=== PATIENT | female | born 1965 | race Caucasian/White ===

== ENCOUNTER 2022-04-11 13:56 | Outpatient (CLI) | payer BC, SELFPAY ==
[2022-04-11 09:41] LABS: Cholesterol* 186 mg/dL (90-199)
[2022-04-11 09:42] LABS: Glucose* 151 mg/dL (60-115); HDL Cholesterol* 51 mg/dL (>=50); LDL Cholesterol Calculated 96 mg/dL (<100); Triglycerides* 193 mg/dL (40-149)
== END 2022-04-11 13:57 | disposition home or self-care (01) ==
PROVIDERS: PCP Family Medicine; Visit Provider Family Medicine
DX: Z01.419 Encounter for gynecological examination (general) (routine) without abnormal findings (principal); E78.5 Hyperlipidemia, unspecified; R73.01 Impaired fasting glucose; E66.9 Obesity, unspecified; L30.9 Dermatitis, unspecified
CPT/HCPCS: 80061; 82947

== ENCOUNTER 2023-09-01 08:28 | Outpatient (CLI) | payer OTHER, SELFPAY ==
--- OUTSIDE RECORDS SUMMARY | 2023-09-04 10:12 | XMS_ITS | Referral Summary ---
Author Name Unknown Organization [facility] Address [address] [place] [address] Care Team Providers Care Medical Authorization Specialist Name Role Phone Clinic, [facility] Primary Care Provider Allergies Active Allergy Reactions Criticality Noted Date Comments Bee Pollen Swelling 09/04/2019 Codeine Hives,Shortness Of Breath High 05/05/2009 Hydrochlorothiazide W-Spironolactone 05/05/2009 Heartburn Iodine Swelling 09/09/2019 Local swelling wherever iodine scrub was used Mold Other (See Comments) 09/04/2019 Nasal congestion Oxycodone-Acetaminophen Hives 05/05/2009 Pyridoxine Swelling 08/21/2018 Medications Medication Sig Dispensed Refills Start Date End Date Status venlafaxine (EFFEXOR) 37.5 MG tablet 0 08/27/2019 Active tamsulosin (FLOMAX) 0.4 MG capsule Take 0.4 mg by mouth 0 09/26/2019 Active Social History Tobacco Use Types Packs/Day Years Used Date Smoking Tobacco: Never Assessed Adolescent Education Answer Date Record ed Getting School Help Needed Not on file 05/20 Sex and Gender Information Value Date Recorded Sex Assigned at Not on file Gender Identity Not on file Sexual Orientation Not on file Last Filed Vital Signs Vital Sign Reading Time Taken Comments Blood Pressure 181/100 04/10/2021 10:21 AM CDT Pulse 77 04/10/2021 10:21 AM CDT Temperature 36.7 ??C (98 ??F) 04/10/2021 10:21 AM CDT Respiratory Rate 22 04/10/2021 10:21 AM CDT Oxygen Saturation 95% 04/10/2021 3:00 PM CDT Inhaled Oxygen Concentration - - Weight 103.9 kg (229 lb) 04/10/2021 10:21 AM CDT Height - - Body Mass Index - - Plan of Treatment Not on file Care Teams Medical Authorization Specialist Relationship Specialty Start Date End Date Clinic, [facility] [address] [place] [address] PCP - General 09/18/19
--- OUTSIDE RECORDS SUMMARY | 2023-09-04 10:12 | XMS_ITS | Clinical Summary ---
Author Name Unknown Organization [facility] Address [place], [place] [address] Care Team Providers Care Hospice Home Care Coordinator Name Role Phone Jose Souza MD Primary Care Provider [phone] Allergies Active Allergy Reactions Criticality Noted Date Comments Spironolacton-Hydroch lorothiaz 05/05/2009 Heartburn Bee Pollen Edema 09/04/2019 Pyridoxine Edema 08/21/2018 Codeine Hives,Shortness Of Breath 05/05/2009 Iodine Edema 09/09/2019 Local swelling wherever iodine scrub was used Mold Other - Describe In Comment Field 09/04/2019 Nasal congestion Oxycodone-Acetaminoph en Hives 05/05/2009 Sulfa (Sulfonamide Antibiotics) Nausea And Vomiting 05/05/2009 Medications Medication Sig Dispensed Refills Start Date End Date Status triamcinolone (ARISTOCORT; KENALOG) 0.1 % cream Apply topically to affected area(s) 2 times daily. 40 g 4 02/18/2011 Active ondansetron (ZOFRAN) 4 mg tablet Take 1 tablet by mouth every 8 hours if needed for Nausea/Vomiting. 20 tablet 0 04/01/2011 Active venlafaxine (EFFEXOR) 37.5 mg tablet Take 1 tablet by mouth every morning. 0 11/18/2013 Active betamethasone dipropionate 0.05% (DIPROSONE 0.05% OINTMENT) 0.05 % ointment Apply topically to affected area(s) 2 times daily. 1 Tube 0 11/18/2013 Active ZOLMitriptan (ZOMIG) 5 mg tablet Take 5 mg by mouth. As needed 0 11/09/2013 Active calcium carbonate (OS-MARCELO 500) 500 mg calcium (1,250 mg) tablet Take 500 mg by mouth once daily with a meal. 0 Active cholecalciferol (VITAMIN D3) 2,000 unit capsule Take 2,000 Units by mouth once daily. 0 Active coenzyme q10 100 mg cap Take 100 mg by mouth once daily. 0 Active HYDROcodone-acetamin ophen, 5-325 mg, (NORCO) per tablet TAKE 1 TABLET BY MOUTH EVERY 4 TO 6 HOURS NEEDED FOR SEVERE PAIN. 0 09/26/2019 Active ondansetron (ZOFRAN ODT) 4 mg disintegrating tablet 0 09/19/2019 Active tamsulosin (FLOMAX) 0.4 mg capsule Take 0.4 mg by mouth once daily after a meal. 0 09/26/2019 Active fluconazole (DIFLUCAN) 200 mg tabletIndications: farnsworth Take 1 tablet by mouth once daily. Take day prior to procedure and day after 2 tablet 0 10/16/2019 Active glucosamine/chondroi tn/C/hilaria (GLUCOSAM-CHONDROITI N-VIT C-[place] ORAL) Take 1 Tab by mouth once daily. 0 Active omega 8-seb-jvb-fish oil 900 mg-360 mg- 455 mg-1,000 mg cap Take 1 capsule by mouth once daily. 0 Active Multivitamins with Minerals capsule Take 1 tablet by mouth once daily. 0 Active diclofenac topical (VOLTAREN) 1 % gel Apply 2-4 g topically to affected area(s) 4 times daily. 0 Active HYDROcodone-acetamin ophen, 5-325 mg, (NORCO) per tabletIndications:Mauricio figueroayasmeen vy Take 1-2 tablets by mouth every 4 hours if needed for Pain Max acetaminophen dose: 4000 mg in 24 hrs. 10 tablet 0 12/16/2019 Active Active Problems Problem Noted Date Diagnosed Date Obesity 05/05/2009 Migraine 05/05/2009 GERD 05/05/2009 Overview: Infrequent since stopping caffeine. Sleep apnea 05/05/2009 Overview: CPAP intolerant. Resolved clinically with septoplasty and nasal cyst excision. Nasal septal deviation 05/05/2009 Chronic rhinitis 05/05/2009 Overview: Improved since septoplasty. Urticaria 05/05/2009 Overview: Chronic Kidney stone Resolved Problems Problem Noted Date Diagnosed Date Resolved Date Toxemia 05/05/2009 07/15/2010 Cervical cancer screening 05/05/2009 Overview: -results- NIL Screening mammogram 05/05/2009 07/15/20 10 Overview: 04/2004-normal results Immunizations Name Administration Dates Next Due Influenza, IIV3 (Age >=3 years) 05/14/2010,05/06 Td (Age >=7 Years) 02/11/1994 Tdap 07/15/2010 Family History Medical History Relation Name Comments Cancer Maternal Aunt Ovarian Cancer-breast Mother DIAGNOSED AT 5 6 YEARS OF AGE Cancer-breast Other 1 MATERNAL GREAT AUNT X 2 Cancer-breast Other 2 MATERNAL SECON D COUSIN X 2 Cancer Other 3 OVARIAN - MATER NAL GREAT AUNT X 2 Cancer Other 4 OVARIAN - MATER NAL GREAT GREAT AUNT Cancer-colon Other 5 MATERNAL GREAT AUNT X 2 Cancer Sister 2 Cervical Relation Name Status Comments Brother Alive Daughter 1 Alive Daughter 2 Alive Father Alive Maternal Aunt Mother Alive Other 1 Other 2 Other 3 Other 4 Other 5 Sister 1 Alive Sister 2 Social History Tobacco Use Types Packs/Day Years Used Date Smoking Tobacco: Never Smokeless Tobacco: Never Tobacco Cessation:Counseling Given: Yes Alcohol Use Standard Drinks/Week Comments Not Currently 0 (1 standard drink = 0.6 oz pur e alcohol) few drinks per year Sex and Gender Information Value Date Recorded Sex Assigned at Not on file Gender Identity Not on file Sexual Orientation Not on file Obstetrics History Para Term AB IAB SAB Ectopic Multiple Livin g Live Births 3 2 2 0 1 0 1 0 0 2 2 Date Outcome GA Total Labor Labor/2nd/3rd Weight Sex Delivery Anes PTL Kim A1 A5 Name Cl in SAB 06/29 Term 40w 0d F Spina l N María ng Hailey payne Comments:toxemia 08/02 Term 40w 0d F Spina l N María ng Arvind payne Last Filed Vital Signs Vital Sign Reading Time Taken Comments Blood Pressure 119/62 12/16/2019 2:24 PM CDT Pulse 61 12/16/2019 2:24 PM CDT Temperature 36.1 ??C (97 ??F) 12/16/2019 2:24 PM CDT Respiratory Rate 16 12/16/2019 2:24 PM CDT Oxygen Saturation 97% 12/16/2019 2:24 PM CDT Inhaled Oxygen Concentration - - Weight 117.5 kg (259 lb) 12/16/2019 11:07 AM CDT Height 167.6 cm (5' 6) 12/16/2019 11:07 AM CDT Body Mass Index 41.8 12/16/2019 11:07 AM CDT Plan of Treatment Health Maintenance Due Date Last Done Comments COVID-19 vaccine series (#1) 1966 Depression screening for age 12+ 1978 HIV for age 15-65 1981 BMI (ht and wt on same day) for age 18+ 02/10/1984 Hepatitis C screening for ag e 18-79 02/10/1984 Colonoscopy through age 75 2011 Mammogram for age 45-75 07/15/2011 07/15/2010 Pap test for age 21-65 07/15/2013 07/15/2010 Lipids for age 45-75 07/15/2015 07/15/2010 Zoster (shingles) series for age 50+ (1 of 2) 02/10/2016 Tetanus booster 07/15/2020 07/15/2010, 02/11/1994 Influenza for age 50-64 04/14/2023 05/14/20 10, 05/06/2009 Tdap Completed 07/15/2010 Pneumococcal series for age 6-64 Aged Out No longer eligible b ased on patient's age to complete this topic Medical Devices Implanted Type Area Rib Trim Separator Device Identifier Shelf Expiration Date Model / Serial / Lot Stent Uret [id number] Contour - [id number] Implanted:Qty: 1 on 09/09/2019 by Víctor Ponce MD at [facility] Left: [facility] 05/23/2022 [id number]# / / [id number] Advance Directives Latest Code Status on File Code Status Date Activated Date Inactivated Comments Full Code 12/16/2019 10:40 AM 12/16/2019 4:58 PM Code Status History Code Status Date Activated Date Inactivated Comments Full Code 09/09/2019 8:17 AM 09/09/2019 2:58 PM Care Teams Hospice Home Care Coordinator Relationship Specialty Start Date End Date Jose Souza MD [address] [place] [address] PCP - General Family Practice 07/18/18
--- OUTSIDE RECORDS SUMMARY | 2023-09-04 10:12 | XMS_ITS | Clinical Summary ---
Author Name Unknown Organization [facility] Address [address] [place] [address] Care Team Providers Care Reclamation Supervisor Name Role Phone Clinic, [facility] Primary Care Provider Allergies Active Allergy Reactions [...] Mass Index - - Plan of Treatment Health Maintenance Due Date Last Done Comments ADVANCE CARE PLANNING 1966 ANNUAL REVIEW OF HM ORDERS 1966 CT COLONOGRAPHY 1966 FIT 1966 FLEX SIG 1966 HEPATITIS B IMMUNIZATION (1 of 3 - 3-dose series) 1966 MAMMO SCREENING 1966 YEARLY PREVENTIVE VISIT 1966 sDNA (Cologuard) 1966 COVID-19 Vaccine (#1) 1966 COLONOSCOPY 02/10/1976 COLORECTAL CANCER SCREENING 02/10/1976 HIV SCREENING 1981 HEPATITIS C SCREENING 02/10/1984 PAP 1987 LIPID 2011 INFLUENZA VACCINE (#1) 2023 9, 05/29/2018, 05/13/2010, Additional history exists PHQ-2 (once per calendar year) 2023 DTAP/TDAP/TD IMMUNIZATION (3 - Td or Tdap) 09/02/2029 09/02/2019, 07/15/2010 ZOSTER IMMUNIZATION Completed 09/02/2019, 06/24/2019, 01/16/2017 HPV IMMUNIZATION Aged Out No longer e ligible based on patient's age to complete this topic IPV IMMUNIZATION Aged Out No longer e ligible based on patient's age to complete this topic MENINGITIS IMMUNIZATION Aged Out No l onger eligible based on patient's age to complete this topic Pneumococcal Vaccine: Pediatrics (0 to 5 Years) and At-Risk Patients (6 to 64 Years) Aged Out No longer eligible based on patient's age to complete this topic RSV MONOCLONAL ANTIBODY Aged Out No l onger eligible based on patient's age to complete this topic Care Teams Reclamation Supervisor Relationship Specialty Start Date End Date Clinic[address] [place] [address] PCP - General 09/18/19
== END 2023-09-01 08:29 | disposition home or self-care (01) ==
LOC: NFLDREF 09-04 10:06
PROVIDERS: PCP Emergency Medicine; Referring Provider Emergency Medicine; Visit Provider Emergency Medicine
DX: E78.5 Hyperlipidemia, unspecified (principal); E11.9 Type 2 diabetes mellitus without complications; Z79.84 Long term (current) use of oral hypoglycemic drugs
CPT/HCPCS: 80061; 82947

== ENCOUNTER 2023-11-16 13:12 | Outpatient (CLI) | payer OTHER, SELFPAY | END 2023-11-16 13:13 | disposition home or self-care (01) | PROVIDERS: PCP Emergency Medicine; Visit Provider Emergency Medicine | DX: E11.9 Type 2 diabetes mellitus without complications (principal); I10 Essential (primary) hypertension; Z79.84 Long term (current) use of oral hypoglycemic drugs | CPT/HCPCS: 80053; 82043; 82570 ==

== ENCOUNTER 2024-01-12 06:09 | Outpatient (CLI) | payer OTHER, SELFPAY ==
--- OUTSIDE RECORDS SUMMARY | 2024-01-12 06:11 | XMS_ITS | Clinical Summary ---
Author Organization [facility] Address [place], [place] [address] Care Team Providers Care Senior Training Specialist Name Role Phone Jose Souza MD Primary Care Provider [phone] Allergies Active Allergy Reactions Criticality Noted Date [...] Take 5 mg by mouth. As needed 11/09/2013 Active calcium carbonate (OS-MARCELO 500) 500 mg calcium (1,250 mg) tablet Take 500 mg by mouth once daily with a meal. Active cholecalciferol (VITAMIN D3) 2,000 unit capsule Take 2,000 Units by mouth once daily. Active coenzyme q10 100 mg cap Take 100 mg by mouth once daily. Active HYDROcodone-acetamin ophen, 5-325 mg, (NORCO) per tablet TAKE 1 TABLET BY MOUTH EVERY 4 TO 6 HOURS NEEDED FOR SEVERE PAIN. 09/26/2019 Active ondansetron (ZOFRAN ODT) 4 mg disintegrating tablet 09/19/2019 Active tamsulosin (FLOMAX) 0.4 mg capsule Take 0.4 mg by mouth once daily after a meal. 09/26/2019 Active fluconazole (DIFLUCAN) 200 mg tabletIndications:Th farnsworth Take 1 tablet by mouth once daily. Take day prior to procedure and day after 2 tablet 10/16/2019 Active glucosamine/chondroi tn/C/hilaria (GLUCOSAM-CHONDROITI N-VIT C-[place] ORAL) Take 1 Tab by mouth once daily. Active omega 7-uwr-fgj-fish oil 900 mg-360 mg- 455 mg-1,000 mg cap Take 1 capsule by mouth once daily. Active Multivitamins with Minerals capsule Take 1 tablet by mouth once daily. Active diclofenac topical (VOLTAREN) 1 % gel Apply 2-4 g topically to affected area(s) 4 times daily. Active HYDROcodone-acetamin ophen, 5-325 mg, (NORCO) per tabletIndications:Mauricio riley stone Take 1-2 tablets by mouth every 4 hours if needed for Pain Max acetaminophen dose: 4000 mg in 24 hrs. 10 tablet 12/16/2019 Active Active Problems Problem Noted Date [...] Health Maintenance Due Date Last Done Comments Depression screening for age 12+ 1978 HIV [...] 2) 02/10/2016 Tetanus booster 07/15/2020 07/15/2010, 02/11/1994 COVID-19 vaccine series (2022- season) 2023 Influenza for age 50-64 04/14/2024 05/14/20, 05/06/2009 Tdap Completed 07/15/2010 Pneumococcal series for age 6-64 Aged Out No longer eligible b ased on patient's age to complete this topic Medical Devices Implanted Type Area Rn Homecare Device Identifier Shelf Expiration Date Model / Serial / Lot Stent Uret [id number] Contour - [id number] Implanted:Qty: 1 on 09/09/2019 by Víctor Ponce MD at [facility] Left: Ureter [facility] 05/23/2022 [id number]# / / [id number] Procedures Procedure Name Priority Date/Time Associated Diagnosis Comments LIPID PANEL W REFLEX MEASURED LDL Routine 07/15/2010 11:22 AM ICT PROGRAMMER Routine general medical examination at a health care facility from Last 3 Months or Most Recently Relevant to Health Maintenance Results * (ABNORMAL) LIPID PANEL W REFLEX MEASURED LDL (07/15/2010 11:22 AM ICT PROGRAMMER) CHOLESTEROL,TOTAL 194 110 - 199 mg/dL [facility] TRIGLYCERIDES 216(H) 40 - 149 mg/dL [facility] HDL CHOLESTEROL 52 >40 mg/dL [facility] CHOL/HDL RATIO 3.73 <4.51 [facility] LDL CHOLESTEROL 99 <131 mg/dL [facility] PATIENT STATUS Fasting [facility] Blood specimen (specimen) BLOOD SPECIMEN / Unknown 07/15/2010 11:22 AM ICT PROGRAMMER 07/15/2010 11:15 AM ICT PROGRAMMER Pacheco Longo MD CHEMISTRY [facility] [place]NAL ZIP [address] [address] from Last 3 Months or Most Recently Relevant to Health Maintenance Advance Directives * Full Code (Latest Code Status on File) Date Activated Date Inactivated Comments 12/16/2019 10:40 AM 12/16/2019 4:58 PM * Full Code Date Activated Date Inactivated Comments 09/09/2019 8:17 AM 09/09/2019 2:58 PM Care Teams Senior Training Specialist Relationship Specialty Start Date End Date Jose Souza MD [address] [place] [address] PCP - General Family Practice 07/18/18
--- OUTSIDE RECORDS SUMMARY | 2024-01-12 06:11 | XMS_ITS | Clinical Summary ---
Author Organization [facility] Address [address] [place] [address]. [place] [address] Care Team Providers Care Driver/Refuse Collector Name Role Phone Clinic, [facility] Primary Care Provider Allergies Active Allergy Reactions Criticality Noted Date Comments Bee Pollen Swelling 09/04/2019 Codeine Hives,Shortness Of Breath High 05/05/2009 Hydrochlorothiazide W-Spironolactone 05/05/2009 Heartburn Iodine Swelling 09/09/2019 Local swelling wherever iodine scrub was used Mold Other (See Comments) 09/04/2019 Nasal congestion Oxycodone-Acetaminophen Hives 05/05/2009 Pyridoxine Swelling 08/21/2018 Medications Medication Sig Dispensed Refills Start Date End Date Status venlafaxine (EFFEXOR) 37.5 MG tablet 08/27/2019 Active tamsulosin (FLOMAX) 0.4 MG capsule Take 0.4 mg by mouth 09/26/2019 Active Social History Tobacco Use Types [...] COLONOGRAPHY 1966 FIT 1966 FLEX SIG 1966 MAMMO SCREENING 1966 YEARLY PREVENTIVE VISIT 1966 sDNA (Cologuard) 1966 COLONOSCOPY 02/10/1976 COLORECTAL CANCER SCREENING 02/10/1976 HIV SCREENING 1981 HEPATITIS C SCREENING 02/10/1984 HEPATITIS B IMMUNIZATION (1 of 3 - 19+ 3-dose series) 1985 PAP 1987 LIPID 2006 COVID-19 Vaccine (2022-24 season) 2023 PHQ-2 (once per calendar year) 2023 GLUCOSE 04/10/2024 04/10/2021, 07/0 11/2019, 09/18/2019 INFLUENZA VACCINE (Season Ended) 2024 06/24/2019, 05/29/2018, 05/13/2010, Additional history exists DTAP/TDAP/TD IMMUNIZATION (3 - Td or Tdap) [...] on patient's age to complete this topic Procedures Procedure Name Priority Date/Time Associated Diagnosis Comments BASIC METABOLIC PANEL STAT 04/10/2021 1:35 PM CDT from Last 3 Months or Most Recently Relevant to Health Maintenance Results * Basic metabolic panel (BMP) (04/10/2021 1:35 PM CDT) Sodium 139 133 - 144 mmol/L 04/10/2021 2:09 PM CDT LABORATORY Potassium 4.1 3.4 - 5.3 mmol/L 04/10/2021 2:09 PM CDT LABORATORY Chloride 107 94 - 109 mmol/L 04/10/2021 2:09 PM CDT LABORATORY Carbon Dioxide (CO2) 26 20 - 32 mmol/L 04/10/2021 2:09 PM CDT LABORATORY Anion Gap 6 3 - 14 mmol/L 04/10/2021 2:09 PM CDT LABORATORY Urea Nitrogen 13 7 - 30 mg/dL 04/10/2021 2:09 PM CDT LABORATORY Creatinine 0.71 0.52 - 1.04 mg/dL 04/10/2021 2:09 PM CDT LABORATORY Calcium 8.8 8.5 - 10.1 mg/dL 04/10/2021 2:09 PM CDT LABORATORY Glucose 98 70 - 99 mg/dL 04/10/2021 2:09 PM CDT LABORATORY GFR Estimate >90 >60 mL/min/1.7 3m2 04/10/2021 2:09 PM CDT LABORATORY Comment:As of February 21, 2021, eGFR is calculated by the CKD-EPI creatinine equation, without race adjustment. eGFR can be influenced by muscle mass, exercise, and diet. The reported eGFR is an estimation only and is only applicable if the renal function is stable. Blood STRUCTURE OF RIGHT UPPER LIMB / Unknown Venipuncture / Unknown 04/10/2021 1:35 PM CDT 04/10/2021 1:45 PM CDT Julia Oliver MD LAB - BL OOD ORDERABLES LABORATORY [facility] [address] Lab (1st floor, no room number) [place] [address], [facility] [phone] from Last 3 Months or Most Recently Relevant to Health Maintenance Care Teams Driver/Refuse Collector Relationship Specialty Start Date End Date Clinic, [address] [address] PCP - General 09/18/19
--- OUTSIDE RECORDS SUMMARY | 2024-01-12 06:11 | XMS_ITS | Continuity of Care Document ---
Author Organization [facility] Address [address] [address] [place] [address] Phone Care Team Providers Care Foreman/Pile Driving And Erection Name Role Phone No Information Unavailable Unavailable Advance Directives Directive Yes / No Effective Date File Name No Information Encounters Encounter Description Practice Location Reason(s) For Visit Diagnoses Date Provider Providers Copied on Encounter [facility], [address] [address], [place], [place], [id number], [place] tel:[phone] No Information No Information Family History Family Member Type Diagnosis Age At Onset No Information Payers Payer name Insurance type Covered constitution party ID Authoriza tion(s) No Information Social History Type Description Quantity Date Captured Comments Sex Female Smoking Status No Information Chief Complaint And Reason For Visit No Information Reason For Referral Reason For Referral No Information History Of Present Illness Encounter Date Complaint History Of Prese nt Illness No Information Functional Status Date Functional Assessmen t No Information Instructions Date Instruction Additional Infor mation No Information Assessments Type Assessment Date No Information Patient Care Teams Name Effective Dates (start - stop) Status Members No Information
--- OUTSIDE RECORDS SUMMARY | 2024-01-12 06:11 | XMS_ITS | Referral Summary ---
Author Organization [facility] Address [address] [place] [address]. [place] [address] Care Team Providers Care Territory Account Executive Name Role Phone Clinic, [facility] Primary Care Provider Allergies Active Allergy [...] - Plan of Treatment Not on file Procedures Procedure Name Priority Date/Time Associated Diagnosis [...] MD LAB - BL OOD ORDERABLES LABORATORY [facility] [address] Lab (1st floor, no room number) [place] [address], [facility] [phone] from Last 3 Months or Most Recently Relevant to Health Maintenance Care Teams Territory Account Executive Relationship Specialty Start Date End Date Clinic, [facility] [address] [place] [address] PCP - General 09/18/19
--- NOTE | 2024-01-12 07:46 | W.ANESCHARGE ---
Anesthesia Charges Start Date/Time Anesthesia Start Date: 01/12/24 Anesthesia Start Time: 07:15 Stop Date/Time Anesthesia Stop Date: 01/12/24 Anesthesia Stop Time: 07:39
--- NOTE | 2024-01-12 07:46 | W.ANESCHARGE ---
Anesthesia Charges Start Date/Time Anesthesia Start Date: 01/12/24 Anesthesia Start Time: 07:15 Stop Date/Time Anesthesia Stop Date: 01/12/24 Anesthesia Stop Time: 07:39
== END 2024-01-12 06:10 | disposition home or self-care (01) ==
LOC: OP CLINIC 06:09
PROVIDERS: PCP Emergency Medicine; Visit Provider Internal Medicine
DX: Z12.11 Encounter for screening for malignant neoplasm of colon (principal); K63.5 Polyp of colon; Z86.010 Personal history of colon polyps
CPT/HCPCS: 00811; 45380; 88305; J2704

== ENCOUNTER 2024-02-16 12:12 | Outpatient (CLI) | payer OTHER, SELFPAY ==
--- OUTSIDE RECORDS SUMMARY | 2024-02-16 12:14 | XMS_ITS | Continuity of Care Document ---
Author Organization [facility] Address [address] [address] [place] [address] Phone Care Team Providers Care Benefits Representative Name Role Phone No Information Unavailable Unavailable Advance Directives Directive Yes / No Effective Date File Name No Information Encounters Encounter Description Practice Location Reason(s) For Visit Diagnoses Date Provider Providers Copied on Encounter [facility], [address] [address], [place], [place], [id number], [place] tel:[phone] No Information No Information Family History Family Member Type Diagnosis Age At Onset No Information Payers Payer name Insurance type Covered libertarian ID Authoriza tion(s) No Information Social History [...]
--- OUTSIDE RECORDS SUMMARY | 2024-02-16 12:14 | XMS_ITS | Clinical Summary ---
Author Organization [facility] Address [address] [place] [address]. [place] [address] Care Team Providers Care Supply Assistant Name Role Phone Clinic, [facility] Primary Care Provider Allergies Active Allergy Reactions [...] 04/10/2024 04/10/2021, 07/0 11/2019, 09/18/2019 INFLUENZA VACCINE (#1) 2024 9, 05/29/2018, 05/13/2010, Additional history exists DTAP/TDAP/TD IMMUNIZATION [...] MD LAB - BL OOD ORDERABLES LABORATORY [facility] [address] Lab (1st floor, no room number) [place] [address], [facility] [phone] from Last 3 Months or Most Recently Relevant to Health Maintenance Care Teams Supply Assistant Relationship Specialty Start Date End Date Clinic, [address] [address] PCP - General 09/18/19
--- OUTSIDE RECORDS SUMMARY | 2024-02-16 12:14 | XMS_ITS | Referral Summary ---
Author Organization [facility] Address [address] [place] [address]. [place] [address] Care Team Providers Care Curriculum And Instruction Director Name Role Phone Clinic, [facility] Primary Care Provider Allergies Active Allergy [...] MD LAB - BL OOD ORDERABLES LABORATORY [facility] [address] Lab (1st floor, no room number) [place] [address], [facility] [phone] from Last 3 Months or Most Recently Relevant to Health Maintenance Care Teams Curriculum And Instruction Director Relationship Specialty Start Date End Date Clinic, [facility] [address] [place] [address] PCP - General 09/18/19
--- OUTSIDE RECORDS SUMMARY | 2024-02-16 12:14 | XMS_ITS | Clinical Summary ---
Author Organization [facility] Address [place], [place] [address] Care Team Providers Care Heel Sander Name Role Phone Jose Souza MD Primary Care Provider [phone] Allergies Active Allergy Reactions Criticality Noted Date [...] Tab by mouth once daily. Active omega 7-vyu-aar-fish oil 900 mg-360 mg- 455 mg-1,000 mg [...] Overview: -results- NIL Screening mammogram 05/05/2009 07/15/20 Overview: 04/2004-normal results Encounters Date Type Department Care Team Description 01/12/2024 Lab Requisition [facility] [phone] Chicho Lang MD from Last 3 Months Immunizations Name Administration Dates Next Due Influenza, [...] Outcome GA Total Labor Labor/2nd/3rd Weight Sex Type Anes PTL Kim A1 A5 Name Clin SAB 1989 Term 40w 0d F C-Sec tion Spinal N Livin g Hailey Meza g Comments:toxemia 1990 Term 40w 0d F C-Sec tion Spinal N Livin g Juju bolden Last Filed Vital Signs Vital Sign Reading [...] booster 07/15/2020 07/15/2010, 02/11/1994 COVID-19 vaccine series ( season) 2023 Influenza for age 50-64 04/14/2024 05/14/20, 05/06/2009 Tdap Completed 07/15/2010 Pneumococcal series for age 6-64 Aged Out No longer eligible b ased on patient's age to complete this topic Medical Devices Implanted Type Area Personal Protection Specialist Device Identifier Shelf Expiration Date Model / Serial / Lot Stent Uret [id number] Contour - [id number] Implanted:Qty: 1 on 09/09/2019 by Víctor Ponce MD at [facility] Left: Ureter [employer] [facility] 05/23/2022 [id number] / / [id number] Procedures Procedure Name Priority Date/Time Associated Diagnosis Comments LAB TRACKING EVENT Routine 01/12/2024 7: 20 AM CDT PATH TISSUE EXAM Routine 01/12/2024 7:20 AM CDT LIPID PANEL W REFLEX MEASURED LDL Routine 07/15/2010 11:22 AM SPECIAL EDUCATION BUS DRIVER Routine general medical examination at a health care facility from Last 3 Months or Most Recently Relevant to Health Maintenance Results * LAB TRACKING EVENT (01/12/2024 7:20 AM CDT) Other (Other) Client Collect / Unknown 01/12/2024 7:20 AM CDT 01/12/2024 9:13 PM CDT Chicho Lang MD LAB BILL ONLY [facility] LAB[facility] [address] [place] [address], * PATH TISSUE EXAM (01/12/2024 7:20 AM CDT) Case Report Pathology Report ?Case: [id number] ? Authorizing Provider: ??Chicho Lang MD ?Collected: ? 01/12/2024 0720 ? Ordering Location: ? [facility] ?Received: ?01/13/2024 0534 ? Pathologist: ? Barrett Motley, ? MD ? Specimen: ?Transverse Colon Biopsy ? 01/15/2024 11:21 AM CDT [facility] Final Diagnosis A) COLON, TRANSVERSE, POLYPECTOMY: 1. Tubular adenoma 2. Negative for high grade dysplasia 3. Per the colonoscopy report: ?? a. Polyp size: 2 mm ?? b. Resection: Complete ?? c. Retrieval: Complete 01/15/2024 11:21 AM [facility] Clinical Information History of colon polyps 01/15/2024 11:21 AM T [facility] Gross Description A) Received in formalin is a campa mucosal fragment measuring 3 mm in greatest dimension, which is entirely submitted in one cassette. It is labeled with the patient's name and designated transverse polyp. Howie Bonilla 01/13/2024 10:42 AM 01/15/2024 11:21 AM T [facility] Microscopic Description The final diagnosis is based on microscopic examination of appropriate sections of all specimens. 01/15/2024 11:21 AM T [facility] Additional Information Interpreted at [facility], Central Laboratory - [address] [address] 01/15/2024 11:21 AM T [facility] N[facility] Other (Transverse Colon Biopsy) 01/12/2024 7:20 AM CDT 01/13/2024 5:34 AM CDT Chicho Lang MD PATHOLOGY/CYTOLOGY [facility] LAB[facility] [address] [address], * (ABNORMAL) LIPID PANEL W REFLEX MEASURED LDL (07/15/2010 11:22 AM SPECIAL EDUCATION BUS DRIVER) CHOLESTEROL,TOTAL 194 110 - 199 mg/dL [facility] TRIGLYCERIDES 216(H) 40 - 149 mg/dL [facility] HDL CHOLESTEROL 52 >40 mg/dL [facility] CHOL/HDL RATIO 3.73 <4.51 [facility] LDL CHOLESTEROL 99 <131 mg/dL [facility] PATIENT STATUS Fasting [facility] Blood specimen (specimen) BLOOD SPECIMEN / Unknown 07/15/2010 11:22 AM SPECIAL EDUCATION BUS DRIVER 07/15/2010 11:15 AM SPECIAL EDUCATION BUS DRIVER Pacheco Longo MD CHEMISTRY [facility] INTERNAL ZIP [phone] [address] from Last 3 Months or Most Recently Relevant to Health Maintenance Advance Directives * Full Code (Latest Code Status on File) Date Activated Date Inactivated Comments 12/16/2019 10:40 AM 12/16/2019 4:58 PM * Full Code Date Activated Date Inactivated Comments 09/09/2019 8:17 AM 09/09/2019 2:58 PM Care Teams Heel Sander Relationship Specialty Start Date End Date Jose Souza MD [address] [place] [address] PCP - General Family Practice 07/18/18
--- NOTE | 2024-02-16 13:00 | CRLHL7_ITS ---
For Patients: As a result of the Century Cures Act, medical imaging exams and procedure reports are released immediately into your electronic medical record. You may view this report before your referring provider. If you have questions, please contact your health care provider. INDICATION: Dysphagia. Throat pain. TECHNIQUE: CT of the neck with 95 cc Omnipaque 370 iodinated contrast agent. COMPARISON: Soft tissue radiographs from 12/29/2023. FINDINGS: Nasopharynx: Within normal limits. Oropharynx: Within normal limits. Oral cavity: Within normal limits. Supraglottic, glottic and infraglottic larynx: Within normal limits. Hypopharynx: Within normal limits. Airway including the trachea: Within normal limits. Salivary glands and thyroid gland: A few tiny hypodense nodules within the thyroid gland. A 10 millimeter enhancing nodule within the left posterior superficial parotid gland. Lymph nodes and other cervical soft tissues: No pathologic cervical lymphadenopathy. A few normal-appearing lymph nodes are present at typical iesha stations. Vascular Structures: The major vascular structures are patent. Osseous structures: No acute osseous abnormalities. Mild degenerative cervical kyphosis. Moderate disc degeneration C5-6 and C6-7. Scattered uncovertebral/facet arthrosis with high-grade neural foraminal stenosis at C6-7 on the right, and low-grade elsewhere. Degenerative osseous fusion along the left-sided C4-5 facet. Paranasal sinuses and mastoid air cells: The paranasal sinuses and mastoid air cells are well aerated. Teeth: No periapical dental disease. Imaged orbits and intracranial contents: Within normal limits. Imaged chest wall, mediastinum and upper lungs: Lung apices are clear. No mediastinal abnormalities. IMPRESSION: 1. No abnormalities involving the deep spaces of the neck. 2. A small left superficial parotid nodule. A few tiny hypodense nodules. Both likely benign. 3. Scattered mildly prominent cervical lymph nodes, likely reactive. Please note that all CT scans at this facility use dose modulation, iterative reconstruction, and/or weight-based dosing when appropriate to reduce radiation dose to as low as reasonably achievable. Dictated by Sesar Victor MD @ 02/16/2024 3:57:33 PM (Electronically Signed)
[2024-02-16 13:15] LABS: Creatinine* 0.8 mg/dL (0.5-1.5); Estimated Glomerular Filt Rate 85 ml/min
== END 2024-02-16 12:13 | disposition home or self-care (01) ==
LOC: CT 12:13
PROVIDERS: PCP Emergency Medicine; Visit Provider Otolaryngology
DX: R13.10 Dysphagia, unspecified (principal)
CPT/HCPCS: 36415; 70491; 82565; Q9967

== ENCOUNTER 2024-02-28 11:54 | Outpatient (CLI) | payer OTHER, SELFPAY ==
--- OUTSIDE RECORDS SUMMARY | 2024-02-28 11:57 | XMS_ITS | Clinical Summary ---
Author Organization [facility] Address [place], [place] [address] Care Team Providers Care Certified Neurodiagnostic Technologist Name Role Phone Jose Souza MD Primary Care Provider [phone] Allergies Active Allergy Reactions Criticality Noted Date [...] Tab by mouth once daily. Active omega 7-pdg-sok-fish oil 900 mg-360 mg- 455 mg-1,000 mg [...] Department Care Team Description 01/12/2024 Lab Requisition [facility] [phone] Chicho Lang MD from Last 3 Months [...] this topic Medical Devices Implanted Type Area Network Associate Device Identifier Shelf Expiration Date Model / Serial / Lot Stent Uret [id number] Contour - [id number] Implanted:Qty: 1 on 09/09/2019 by Víctor Ponce MD at [facility] Left: Ureter [employer] [facility] 05/23/2022 [id number]# / / [id number] Procedures Procedure Name Priority Date/Time Associated Diagnosis Comments LAB TRACKING EVENT Routine 01/12/2024 7: 20 AM CDT PATH TISSUE EXAM Routine 01/12/2024 7:20 AM CDT LIPID PANEL W REFLEX MEASURED LDL Routine 07/15/2010 11:22 AM AIX ARCHITECT Routine general medical examination at a health care facility from Last 3 Months or Most Recently Relevant to Health Maintenance Results * LAB TRACKING EVENT (01/12/2024 7:20 AM CDT) Other (Other) Client Collect / Unknown 01/12/2024 7:20 AM CDT 01/12/2024 9:13 PM CDT Chicho Lang MD LAB BILL ONLY [facility]AL LABORATORY [address] [place] [address], * PATH TISSUE EXAM (01/12/2024 7:20 AM CDT) Case Report Pathology Report ?Case: [id number] ? Authorizing Provider: ??Chicho Lang MD ?Collected: ? 01/12/2024 0720 ? Ordering Location: ? [facility] ?Received: ?01/13/2024 0534 ? Pathologist: ? Barrett Motley, ? MD ? Specimen: ?Transverse Colon Biopsy ? 01/15/2024 11:21 AM CDT [facility] Final Diagnosis A) COLON, TRANSVERSE, POLYPECTOMY: 1. Tubular adenoma 2. Negative for high grade dysplasia 3. Per the colonoscopy report: ?? a. Polyp size: 2 mm ?? b. Resection: Complete ?? c. Retrieval: Complete 01/15/2024 11:21 AM [facility] N[facility] LAB[facility]AT[facility] Clinical Information History of colon polyps 01/15/2024 11:21 AM T [facility] Gross Description A) Received in formalin is a campa mucosal fragment measuring 3 mm in greatest dimension, which is entirely submitted in one cassette. It is labeled with the patient's name and designated transverse polyp. Howie Bonilla 01/13/2024 10:42 AM 01/15/2024 11:21 AM T [facility] Microscopic Description The final diagnosis is based on microscopic examination of appropriate sections of all specimens. 01/15/2024 11:21 AM T [facility] Additional Information Interpreted at [facility], Central Laboratory - [address] [address] 01/15/2024 11:21 AM T [facility] NTRAL LABORAT[facility] Other (Transverse Colon Biopsy) 01/12/2024 7:20 AM CDT 01/13/2024 5:34 AM CDT Chicho Lang MD PATHOLOGY/CYTOLOGY [facility]-C[facility]TRAL LABORATORY [address] [address], * (ABNORMAL) LIPID PANEL W REFLEX MEASURED LDL (07/15/2010 11:22 AM AIX ARCHITECT) CHOLESTEROL,TOTAL 194 110 - 199 mg/dL [facility] TRIGLYCERIDES 216(H) 40 - 149 mg/dL [facility] HDL CHOLESTEROL 52 >40 mg/dL [facility] CHOL/HDL RATIO 3.73 <4.51 [facility] LDL CHOLESTEROL 99 <131 mg/dL [facility] PATIENT STATUS Fasting [facility] Blood specimen (specimen) BLOOD SPECIMEN / Unknown 07/15/2010 11:22 AM AIX ARCHITECT 07/15/2010 11:15 AM AIX ARCHITECT Pacheco Longo MD CHEMISTRY [facility] INTERNAL ZIP [phone] [address] from Last 3 Months or Most Recently Relevant to Health Maintenance Advance Directives * Full Code (Latest Code Status on File) Date Activated Date Inactivated Comments 12/16/2019 10:40 AM 12/16/2019 4:58 PM * Full Code Date Activated Date Inactivated Comments 09/09/2019 8:17 AM 09/09/2019 2:58 PM Care Teams Certified Neurodiagnostic Technologist Relationship Specialty Start Date End Date Jose Souza MD [address] [place] [address] PCP - General Family Practice 07/18/18
--- OUTSIDE RECORDS SUMMARY | 2024-02-28 11:57 | XMS_ITS | Clinical Summary ---
Author Organization [place] Address [address] [place] [address]. [place] [address] Care Team Providers Care Hotel Operations Manager Name Role Phone Clinic, [facility] Primary Care Provider Allergies Active Allergy [...] MD LAB - BL OOD ORDERABLES LABORATORY [facility] Acute Care Lab [address] Lab (1st floor, no room number) [place] [address], [facility] [phone] from Last 3 Months or Most Recently Relevant to Health Maintenance Care Teams Hotel Operations Manager Relationship Specialty Start Date End Date Clinic, [address] [address] PCP - General 09/18/19
--- OUTSIDE RECORDS SUMMARY | 2024-02-28 11:57 | XMS_ITS | Referral Summary ---
Author Organization [facility] Address [address] [place] [address]. [place] [address] Care Team Providers Care Outside Dealer Sales Representative Name Role Phone Clinic, [facility] Primary Care Provider Allergies Active Allergy Reactions [...] MD LAB - BL OOD ORDERABLES LABORATORY [facility] Acute Care Lab [address] Lab (1st floor, no room number) [place] [address], [facility] [phone] from Last 3 Months or Most Recently Relevant to Health Maintenance Care Teams Outside Dealer Sales Representative Relationship Specialty Start Date End Date Clinic, [facility] [address] [place] [address] PCP - General 09/18/19
--- NOTE | 2024-04-09 08:40 | W.PM.SLEEP ---
Sleep Study Details Details Interpreting Provider: Anna Date of Sleep Study: 02/28/24 Sleep Study Details: STUDY TYPE:? Home unattended ? BMI:? 36.5 ORDERING PROVIDER:? Anna INDICATION:? Concern about sleep apnea ? SLEEP SUMMARY:? 500 minutes monitored RESPIRATORY SUMMARY:? AHI 25.1 Low oxygen 70 23% of study oxygen less than 90% Snoring 96.2% PERIODIC LIMB MOVEMENTS OF SLEEP:? Not recorded CARDIAC:? Range 52-99, mean 64.7 IMPRESSION:? Moderate obstructive sleep apnea with significant desaturation RECOMMENDATION: Treatment options include CPAP dental appliance and/or airway expansion surgery. Weight loss is also recommended. Once effective therapy is established recommend overnight oximetry.
== END 2024-02-28 11:55 | disposition home or self-care (01) ==
LOC: SLEEP 11:54
PROVIDERS: PCP Emergency Medicine; Visit Provider Otolaryngology
DX: G47.33 Obstructive sleep apnea (adult) (pediatric) (principal)
CPT/HCPCS: 95806

== ENCOUNTER 2024-03-06 07:05 | Outpatient (CLI) | payer OTHER, SELFPAY ==
--- NOTE | 2024-03-06 07:15 | CRLHL7_ITS ---
For Patients: As a result of the 21st Century Cures Act, medical imaging exams and procedure reports are released immediately into your electronic medical record. You may view this report before your referring provider. If you have questions, please contact your health care provider. Indication: Left parotid mass Technique: MRI face/parotid protocol: Noncontrast sagittal and coronal T1 weighted, axial T2 fat-suppressed, axial T2 turbo spin echo, axial diffusion-weighted, coronal STIR and postcontrast T1 fat-suppressed axial and coronal and non fat suppressed postcontrast T1 coronal sequences. Comparison: CT neck 02/16/2024 Findings: There is no significant abnormality in the neck. No dominant mass, abscess, signal abnormality or focus of pathologic enhancement is demonstrated. There is no significant lymphadenopathy. All the major vascular structures demonstrate normal flow-related signal voids. The airway is widely patent. No mass, signal abnormality or pathologic enhancement is demonstrated in the nasopharynx, oral cavity, tongue or floor of mouth, oropharynx, hypopharynx or larynx. The retropharyngeal, prevertebral, parapharyngeal and leather stitcher spaces are normal in appearance. The thyroid, lacrimal and salivary glands are normal in size, signal, morphology and enhancement pattern. The signal arising from the marrow of the skull base and visualized spine is normal. The paraspinous muscles are symmetric and normal in size, signal and morphology. Chronic left uncinectomy and medial antrostomy postop changes. Few scattered foci of T2 prolongation in the supratentorial white matter are nonspecific but may represent sequela of migraine headaches or chronic small vessel disease. The cervical and upper thoracic spinal cord is normal in contour, calibre and signal. Visualized portions of the brain, the orbits and their contents are unremarkable. Slight reversal of normal cervical lordosis. Anterior osteophytic spurring at C5-6 and C6-7 levels. The craniocervical junction is unremarkable. No mass or fluid-intensity signal is demonstrated in the sinonasal cavities, middle ear clefts or mastoid air cells. No mass, signal abnormality or pathologic enhancement is demonstrated in the mediastinum, visualized pulmonary apices, supraclavicular fossae, superior sulci or visualized portions of the axillae. No pleural effusion is demonstrated. Impression: 1. No suspicious mass or enhancement in the parotid glands. A few small intraparotid lymph nodes are present. 2. Normal deep soft tissues of the neck. 3. No cervical lymphadenopathy. 4. Chronic left uncinectomy and medial antrostomy postop changes. Dictated by Rich Pereira MD @ 03/07/2024 8:31:08 AM (Electronically Signed)
== END 2024-03-06 07:06 | disposition home or self-care (01) ==
LOC: MRI 07:06
PROVIDERS: PCP Emergency Medicine; Visit Provider Otolaryngology
DX: K11.8 Other diseases of salivary glands (principal)
CPT/HCPCS: 70543; A9575

== ENCOUNTER 2024-04-19 07:48 | Outpatient (CLI) | payer OTHER, SELFPAY ==
--- OUTSIDE RECORDS SUMMARY | 2024-04-19 07:51 | XMS_ITS | Referral Summary ---
Author Organization [facility] Address [address] [place] [address]. [place] [address] Care Team Providers Care Submarine Operator Name Role Phone Clinic, [facility] Primary Care Provider Allergies Active Allergy [...] MD LAB - BL OOD ORDERABLES LABORATORY [facility] Acute Care Lab [address] Lab (1st floor, no room number) [place] [address], [facility] [phone] from Last 3 Months or Most Recently Relevant to Health Maintenance Care Teams Submarine Operator Relationship Specialty Start Date End Date Clinic, [facility] [address] [place] [address] PCP - General 09/18/19
--- OUTSIDE RECORDS SUMMARY | 2024-04-19 07:51 | XMS_ITS | Clinical Summary ---
Author Organization [facility] [employer] [facility] Address [place], [place] [address] Care Team Providers Care Junior Network Administrator Name Role Phone Jose Souza MD Primary Care Provider [phone] Allergies Active Allergy Reactions Criticality Noted Date [...] Tab by mouth once daily. Active omega 8-epp-yet-fish oil 900 mg-360 mg- 455 mg-1,000 mg [...] 07/15/2010, 02/11/1994 COVID-19 vaccine series ( season) 2024 Influenza for age 50-64 04/14/2024 05/14/20 10, 05/06/2009 Tdap Completed 07/15/2010 Pneumococcal series for age 6-64 Aged Out No longer eligible b ased on patient's age to complete this topic Medical Devices Implanted Type Area Horse Race Starter Device Identifier Shelf Expiration Date Model / Serial / Lot Stent Uret [id number] Contour - [id number] Implanted:Qty: 1 on 09/09/2019 by Víctor Ponce MD at [facility] Left: Ureter [facility] Urology 05/23/2022 [id number]# / / [id number] Procedures Procedure Name Priority Date/Time Associated Diagnosis Comments LIPID PANEL W REFLEX MEASURED LDL Routine 07/15/2010 11:22 AM PHYSICIAN SCIENTIST Routine general medical examination at a health care facility from Last 3 Months or Most Recently Relevant to Health Maintenance Results * (ABNORMAL) LIPID PANEL W REFLEX MEASURED LDL (07/15/2010 11:22 AM PHYSICIAN SCIENTIST) CHOLESTEROL,TOTAL 194 110 - 199 mg/dL [facility] TRIGLYCERIDES 216(H) 40 - 149 mg/dL [facility] HDL CHOLESTEROL 52 >40 mg/dL [facility] CHOL/HDL RATIO 3.73 <4.51 [facility] LDL CHOLESTEROL 99 <131 mg/dL [facility] PATIENT STATUS Fasting [facility] Blood specimen (specimen) BLOOD SPECIMEN / Unknown 07/15/2010 11:22 AM PHYSICIAN SCIENTIST 07/15/2010 11:15 AM PHYSICIAN SCIENTIST Pacheco Longo MD CHEMISTRY [facility] INTERNAL ZIP [phone] [place] [address] from Last 3 Months or Most Recently Relevant to Health Maintenance Advance Directives * Full Code (Latest Code Status on File) Date Activated Date Inactivated Comments 12/16/2019 10:40 AM 12/16/2019 4:58 PM * Full Code Date Activated Date Inactivated Comments 09/09/2019 8:17 AM 09/09/2019 2:58 PM Care Teams Junior Network Administrator Relationship Specialty Start Date End Date Jose Souza MD [address] [place] [address] PCP - General Family Practice 07/18/18
--- OUTSIDE RECORDS SUMMARY | 2024-04-19 07:51 | XMS_ITS | Clinical Summary ---
Author Organization [place] Address [address] [place] [address]. [place] [address] Care Team Providers Care Financial Director Name Role Phone Clinic, [facility] Primary Care Provider Allergies Active [...] 3-dose series) 1985 PAP 1987 LIPID 2006 PHQ-2 (once per calendar year) 2023 GLUCOSE 04/10/2024 04/10/2021, 07/0 11/2019, 09/18/2019 COVID-19 Vaccine (2022- season) 2024 INFLUENZA VACCINE (#1) 2024 9, 05/29/2018, 05/13/2010, [...] MD LAB - BL OOD ORDERABLES LABORATORY [facility] Acute Care Lab [address] Lab (1st floor, no room number) [place] [address], [facility] [phone] from Last 3 Months or Most Recently Relevant to Health Maintenance Care Teams Financial Director Relationship Specialty Start Date End Date Clinic, [facility] [address] [place] [address] PCP - General 09/18/19
--- NOTE | 2024-04-19 08:15 | CRLHL7_ITS ---
For Patients: As a result of the Century Cures Act, medical imaging exams and procedure reports are released immediately into your electronic medical record. You may view this report before your referring provider. If you have questions, please contact your health care provider. Technique: Double-contrast esophagram performed after the uneventful administration of effervescent crystals and thick barium followed by thin barium. Fluoroscopy time 1 minute 10 seconds. Indication: Foreign body sensation, throat Comparison: None. Findings: Esophagus: Normal morphology. No stricture or mass. Delayed esophageal transit noted. Gastroesophageal reflux: None. No hernia. Impression: Delayed esophageal transit. Remainder unremarkable. Dictated by Rich Hernandez MD @ 04/19/2024 9:03:43 AM (Electronically Signed)
== END 2024-04-19 07:49 | disposition home or self-care (01) ==
LOC: RAD 07:48
PROVIDERS: PCP Family Medicine; Visit Provider Otolaryngology
DX: R09.A2 Foreign body sensation, throat (principal)
CPT/HCPCS: 74221

== ENCOUNTER 2024-12-18 08:24 | Outpatient (CLI) | payer BC, SELFPAY | END 2024-12-18 08:25 | disposition home or self-care (01) | PROVIDERS: PCP Family Medicine; Visit Provider Family Medicine | DX: Z00.01 Encounter for general adult medical examination with abnormal findings (principal); E78.2 Mixed hyperlipidemia; E11.9 Type 2 diabetes mellitus without complications; Z79.84 Long term (current) use of oral hypoglycemic drugs | CPT/HCPCS: 80048; 80061; 84439; 84443 ==

== ENCOUNTER 2025-02-17 14:44 | Outpatient (CLI) | payer BC, SELFPAY | END 2025-02-17 14:45 | disposition home or self-care (01) | LOC: NFLDREF 02-20 06:41 | PROVIDERS: PCP Family Medicine; Referring Provider Family Medicine; Visit Provider Family Medicine | DX: N20.0 Calculus of kidney (principal); R10.9 Unspecified abdominal pain | CPT/HCPCS: 87086 ==

== ENCOUNTER 2025-02-18 12:14 | Outpatient (CLI) | payer BC, SELFPAY ==
--- NOTE | 2025-02-18 13:00 | CRLHL7_ITS ---
For Patients: As a result of the Century Cures Act, medical imaging exams and procedure reports are released immediately into your electronic medical record. You may view this report before your referring provider. If you have questions, please contact your health care provider. Indication: LEFT FLANK PAIN. HX OF STONES Technique: Noncontrast CT abdomen and pelvis Please note that all CT scans at this facility use dose modulation, iterative reconstruction, and/or weight-based dosing when appropriate to reduce radiation dose to as low as reasonably achievable. Comparison: 09/23/2021 Findings: Lung bases are clear. Noncontrast enhanced liver is similar. Small layering stones in the gallbladder. Spleen is unremarkable. No adrenal nodule. Normal kidneys. No renal stone or hydronephrosis. No perinephric stranding. The pancreas is within normal limits. A few scattered subcentimeter retroperitoneal lymph nodes are present. No bowel obstruction or free air. No free fluid or abscess. Postop changes to the left lower quadrant abdominal wall. Bladder is unremarkable. Normal ureters. Degenerative disc disease L5-S1. No vertebral body compression fracture. Impression: No renal, ureteral or bladder stones. Please note that all CT scans at this facility use dose modulation, iterative reconstruction, and/or weight-based dosing when appropriate to reduce radiation dose to as low as reasonably achievable. Dictated by Rich Hernandez MD @ 02/18/2025 3:24:50 PM (Electronically Signed)
== END 2025-02-18 12:15 | disposition home or self-care (01) ==
LOC: CT 12:16
PROVIDERS: PCP Family Medicine; Visit Provider Family Medicine
DX: R10.9 Unspecified abdominal pain (principal); N20.0 Calculus of kidney
CPT/HCPCS: 74176

== ENCOUNTER 2025-04-06 10:53 | Outpatient (CLI) | payer BC, SELFPAY | END 2025-04-06 10:54 | disposition home or self-care (01) | LOC: LKVREF 10:53 | PROVIDERS: PCP Family Medicine; Visit Provider Physician Assistant | DX: R21 Rash and other nonspecific skin eruption (principal); Z11.8 Encounter for screening for other infectious and parasitic diseases | CPT/HCPCS: 86618 ==